=== PATIENT | female | born 1970 | race Caucasian/White ===

== ENCOUNTER 2021-07-04 09:37 | Day surgery (SDC) | payer OTHER, SELFPAY ==
[2021-07-04] VITALS (9 sets, daily range): BP systolic 116–132; BP diastolic 62–76; PULSE 51–66; RESP 17–18; TEMP 36.1–36.4; O2SAT 91–96; BMI 42.9
--- NOTE | ~2021-07-04 | FL_ITS ---
EXAMINATION: XR LUMBAR PUNCTURE CLINICAL INFORMATION: Pseudotumor cerebri COMPARISON: None TECHNIQUE: Following explaining lumbar puncture procedure, benefits and risk, a written consent was obtained. Patient was placed prone on fluoroscopy table and low back area was cleaned and draped in usual sterile manner. 1% lidocaine was injected puncture site. A 20-gauge 6 inch needle was inserted from the skin intrathecally at the L4-L5 disc level. After observing CSF return following removal of the stylet patient was quickly placed in left lateral decubitus view and opening CSF pressure was obtained. CSF fluid was then collected in 4 test tubes. After collecting fluid in the chest tubes stylet was reintroduced and needle withdrawn. Complete hemostasis achieved at puncture site. Sterile Band-Aid applied at the puncture site. Patient tolerated procedure extremely well. FINDINGS: On the single image obtained of lumbar spine the vertebral heights and alignment is maintained normal. The opening CSF pressure measured 19.5 cm of water. Approximately 13.7 mL of clear CSF fluid was collected in 4 test tubes and sent to lab as per physician's request. FLUOROSCOPY TIME: 0.2 minutes DOSE AREA PRODUCT: 5.135 uGy-m2 (microgray-meter squared) FL/FL guided lumbar puncture LP IMPRESSION: Successful fluoroscopy-guided lumbar puncture performed at L4-L5 disc level.
[2021-07-04 10:06] LABS: MANUAL DIFF FLAG NO
[2021-07-04 10:12] LABS: Basophils Percent Auto 0.5 % (0-2); Eosinophils Absolute Auto 0.2 X10*3/uL (0.0-0.4); Eosinophils Percent Auto 3.5 % (0-4); Hemoglobin 14.8 g/dl (12.0-16.0); Imm Gran Abs Auto 0.03 X10*3/uL (0.00-0.03); Imm Gran Pct Auto 0.5 % (0.0-0.4); Lymphocytes Absolute Auto 2.1 X10*3/uL (1.2-4.9); Lymphocytes Percent Auto 35.2 % (20-40); Mean Corpuscular HGB Conc 33.6 g/dl (31.0-35.0); Mean Corpuscular Hemoglobin 30.6 pg (27.0-33.0); Mean Corpuscular Volume 90.9 fL (80.0-98.0); Mean Platelet Volume 9.8 fL (9.4-12.3); Monocytes Absolute Auto 0.4 X10*3/uL (0.1-1.2); Monocytes Percent Auto 6.9 % (2-11); Neutrophils Absolute Auto 3.2 x10*3/uL (2.0-8.3); Neutrophils Percent Auto 53.4 % (45-73); Platelet Count 198 X10*3/uL (160-400); Red Blood Count 4.84 X10*6/uL (4.20-5.50); Red Cell Distribution Width 12.6 % (11.0-16.0); White Blood Count 6.1 X10*3/uL (4.8-10.8)
[2021-07-04 10:14] LABS: INTERNATIONAL NORM RATIO 1.1 (0.9-1.1); Prothrombin Time 12.1 SEC (9.9-13.0)
[2021-07-04 10:17] LABS: Partial Thromboplastin Time 33.6 SEC (24.1-38.0)
[2021-07-04 12:31] LABS: CSF Appearance Clear, Colorless; CSF Tube # 2
[2021-07-04 12:39] LABS: Total Protein CSF 31.1 mg/dL (15-45)
[2021-07-04 12:50] LABS: Appearance CSF CLEAR; CSF Tube # 4
[2021-07-04 12:51] LABS: Color CSF COLORLESS; Lymphocytes CSF 100 %; Red Blood Cell CSF 0 MM*3; White Blood Cell CSF 1 MM*3
== END 2021-07-04 14:28 | disposition home or self-care (01) ==
PROVIDERS: Psychiatry & Neurology Neurology; Radiology Diagnostic Radiology; PCP Internal Medicine; Visit Provider Radiology Diagnostic Radiology
PROC: 009U3ZZ Drainage of Spinal Canal, Percutaneous Approach (ICD-10-PCS; CPT 62270; principal; 2021-07-04 11:00)
DX: G93.2 Benign intracranial hypertension (principal); I10 Essential (primary) hypertension; E66.9 Obesity, unspecified; Z68.42 Body mass index [BMI] 45.0-49.9, adult; Z79.899 Other long term (current) drug therapy
CPT/HCPCS: 36415; 62328; 84157; 85025; 85610; 85730; 87015; 87070; 87205; 89051